=== PATIENT | male | born 1990 | race Caucasian/White ===

== ENCOUNTER 2021-03-28 07:13 | Emergency (ER) | payer MEDICAID, SELFPAY ==
[2021-03-28 07:18] VITALS: BP 148/114; PULSE 104; RESP 18; TEMP 36.8; O2SAT 98
--- NOTE | 2021-03-28 08:02 | W.ED.GENAD ---
Discharge Plan Disposition Patient Disposition: HOME Condition: Stable Discharge Details Clinical Impression: Seizure disorder Primary Care Provider: [facility] Provider: Patel Trivedi Home Meds and New Rx's Prescriptions: Continued clonazepam 0.5 mg tablet 1.5 mg PO DAILY RF: 0 lamotrigine 25 mg tablet 25 mg PO DAILY RF: 0 lidocaine [Lidoderm] 5 % adhesive patch,medicated 1 patch topical PRN PRNRF: 0 buprenorphine-naloxone [Suboxone] 1 EACH film 16 mg PO BID RF: 0 Discharge Instructions Instructions: Recurrent Seizures in Adults (ED) Additional Instructions: Please do not drive or operate any heavy machinery until cleared to do so by your neurologist. Please follow-up with your neurologist. Call today to discuss recent seizures and to schedule follow-up appointment. Please seek COVID-19 vaccination as soon as possible. Call your local pharmacy to arrange vaccination. Please contact your primary care physician to arrange follow-up. Return to the ER for any worsening or new concerning symptoms. Discharge Data Discharge Date/Time-TO BE ENTERED AT DEPARTURE: 03/28/21 09:03 Medical Decision Making 30-year-old male with known seizure disorder, follows with neurology at [place], here in law enforcement protective custody after pulled over for broken taillight, low enforcement requesting medical screening. Medical screening exam was performed. Patient stable. Patient is not clinically intoxicated. Neurologically intact with no seizure activity at this time. I do believe the patient had a seizure last night. We did call and speak with outpatient clinic who notes that he has been noncompliant with medication in the past. Confirmed medication dosing. I will give Lamictal and clonazepam. Plan have the patient follow-up with neurology. I encouraged him to call today. Law enforcement requested the designated agency be involved per their protocol. [facility] human services crisis screener was contacted and spoke with law enforcement. Crisis screener evaluated the patient and cleared from protective custody. HPI General Mode of arrival: EMS. Date/Time Provider Initiated Documentation: 03/28/21 07:45. Limitations to Documentation: no limitations. Information obtained by: patient. HPI Narrative: 30-year-old male with known seizure disorder, follows with neurology at [place], here in law enforcement protective custody after pulled over for broken taillight, found to be intoxicated, initially taken into temporary custody and now sober. Law enforcement requesting medical screening and crisis screener clearance for temporary custody clearance. Patient has no complaint. Patient denies being intoxicated. Patient believes he had a seizure last night and was in a post ictal state. Related Data Home Medications Medication Instructions Recorded Confirmed buprenorphine-naloxone [Suboxone] 16 mg PO BID 06/01/16 03/28/21 clonazepam 1.5 mg PO DAILY 03/28/21 03/28/21 lamotrigine 25 mg PO DAILY 03/28/21 03/28/21 lidocaine [Lidoderm] 1 patch TOPICAL PRN PRN 03/28/21 03/28/21 Allergies Allergy/AdvReac Type Severity Reaction Status Date / Time No Known Allergies Allergy Unverified 03/28/21 07:26 General Stated Complaint: PsychEval EJ: 2 Review of Systems All systems reviewed & are unremarkable except as noted in HPI and below Cardiovascular Cardiovascular: Denies chest pain Neurologic Neurologic: Reports as per [facility] Medical History (Updated 03/28/21 @ 08:06 by Patel Trivedi MD) Seizure Social History Smoking/Tobacco Use Status: Current every day Smoking risk assessment performed?: Yes Drug use: Occasionally Substance use type: marijuana Do you feel safe in your relationship?: Yes Exam Const General: cooperative and no acute distress HENMT Head: normocephalic and atraumatic Mouth: moist mucous membranes Eyes Conjunctivae: normal conjunctivae Sclera: normal sclerae EOM: EOM intact bilaterally Neck Neck: trachea midline and supple Resp Auscultation: clear to auscultation bilaterally, no rales, no rhonchi and no wheezes Cardio Rate: regular rate and not tachycardic Rhythm: regular rhythm GI Palpation: soft, not firm, no guarding, no masses, not rigid and nontender Skin General skin exam: no rashes or lesions noted Neuro General: patient alert, patient awake, patient oriented x3 and tone normal Extrem General: no edema Psych Appearance: grossly normal Mental Status: mental status grossly normal Speech and Movement: speech and movement normal Course Vital Signs Vital signs: Vital Signs Temperature 36.8 C 03/28/21 07:18 Pulse 104 H 03/28/21 07:18 Respiratory Rate 18 03/28/21 07:18 Blood Pressure 148/114 H 03/28/21 07:18 Pulse Oximetry 98 03/28/21 07:18 Temperature 36.8 C 03/28/21 07:18 Temperature Source Skin 03/28/21 07:18 Pulse 104 H 03/28/21 07:18 Respiratory Rate 18 03/28/21 07:18 Respiratory Effort Non-Labored 03/28/21 07:26 Blood Pressure 148/114 H 03/28/21 07:18 Pulse Oximetry 98 03/28/21 07:18 Pain Level 4 03/28/21 07:18
[2021-03-28] MEDS: clonazePAM 0.5 MG TAB PO (08:17)
[2021-03-28] MEDS: lamoTRIgine 25 MG TAB PO (08:32)
== END 2021-03-28 09:03 | disposition home or self-care (01) ==
PROVIDERS: Emergency Provider Student in an Organized Health Care Education/Training Program
DX: G40.409 Other generalized epilepsy and epileptic syndromes, not intractable, without status epilepticus (principal); Z04.6 Encounter for general psychiatric examination, requested by authority
CPT/HCPCS: 99285; 99283